=== PATIENT | female | born 1995 | race Caucasian/White ===

== ENCOUNTER 2017-05-31 20:47 | Emergency (ER) | payer BC ==
[2017-05-31 21:17] VITALS: BP 129/98
--- NOTE | 2017-05-31 21:50 | ER Document Report ---
HPI - HPI Patient complains to provider of: Sinus pressure, productive cough Pain Level: 1 Context: Patient is a 21-year-old female who comes emergency department for chief complaint of 5 days of progressively worsening symptoms including cough, nasal drainage, sore throat, and worsening sinus pressure and congestion. She denies fever. She denies difficulty breathing, vomiting, headache, neck stiffness. She does not smoke. She denies any daily medications. LMP within the past month. - REPRODUCTIVE LMP: 05/30/17 - DERM Skin Color: Normal Past Medical History - General Information source: Patient - Social History Smoking Status: Never Smoker Frequency of alcohol use: None Drug Abuse: None Lives with: Family Family History: Reviewed & Not Pertinent Patient has suicidal ideation: No Patient has homicidal ideation: No - Medical History Medical History: Negative Renal/ Medical History: Denies: Hx Peritoneal Dialysis Surgical Hx: Negative - Immunizations Immunizations up to date: Yes Hx Diphtheria, Pertussis, Tetanus Vaccination: Yes Vertical Provider Document - CONSTITUTIONAL General Appearance: WD/WN, No Apparent Distress - INFECTION CONTROL TRAVEL OUTSIDE OF THE [place] IN LAST 30 DAYS: No - HEENT HEENT: Atraumatic, Normocephalic. negative: Normal ENT Exam - Patient with marked tenderness over the maxillary sinuses, nasal congestion, mildly erythematous pharynx, borderline ear exam with small amount of fluid behind tympanic membranes, otherwise unremarkable ENT exam - NECK Neck: Normal Inspection - RESPIRATORY Respiratory: Breath Sounds Normal, No Respiratory Distress. negative: Wheezing - Clear lungs bilaterally O2 Sat by Pulse Oximetry: 97 - CARDIOVASCULAR Cardiovascular: Regular Rate, Regular Rhythm - GI/ABDOMEN Gastrointestinal: Abdomen Soft, Abdomen Non-Tender - BACK Back: Normal Inspection - DERM Integumentary: Warm, Dry, No Rash Course - Re-evaluation Re-evalutation: Patient reports she initially had fever a few days ago but this resolved, however now she has worsened and her sinuses have become painful. On examination she has noted maxillary sinusitis, patient has productive cough although her lungs are clear on examination. No hypoxia, no respiratory distress, no concerning lung abnormality on examination. Discussed with patient. Patient will be treated with antibiotics, symptom management, provided with work release, discussed follow-up recommendations and return precautions, patient states understanding and agreement. - Vital Signs Vital signs: Temp Pulse Resp BP Pulse Ox 98.5 F 111 H 16 129/98 H 97 05/31/17 21:15 10/20/17 21:15 05/31/17 21:15 05/31/17 21:15 05/31/17 21:15 Discharge - Discharge Clinical Impression: Productive cough Sinusitis Qualifiers: Sinusitis location: maxillary Chronicity: acute Recurrence: non-recurrent Qualified Code(s): J01.00 - Acute maxillary sinusitis, unspecified Upper respiratory infection Qualifiers: URI type: unspecified URI Qualified Code(s): J06.9 - Acute upper respiratory infection, unspecified Condition: Stable Disposition: HOME, SELF-CARE Additional Instructions: Your examination is consistent with an upper respiratory viral infection leading into a sinus infection and secondary drainage and cough. Recommendation is to take the antibiotic as prescribed, continue NyQuil at night , take the Tessalon if needed for cough, take Tylenol or ibuprofen for body ache /discomfort, use the Flonase nasal spray as prescribed. Drink plenty of fluids and rest. Follow-up with primary care. Return to emergency department for any concerning or worsening symptoms including difficulty breathing or any other concerning symptoms. Prescriptions: Benzonatate [Tessalon Perles 100 mg Capsule] 100 mg PO Q8HP PRN #20 capsule PRN Reason: Doxycycline Hyclate 100 mg PO BID #14 capsule Fluticasone Propionate [Flonase Nasal Roosevelt 50 Mcg/Roosevelt 16 gm] 2 sprays NASL Q12 #1 inhaler Forms: Return to Work
== END 2017-05-31 22:12 | disposition home or self-care (01) ==
LOC: ER 20:47
DX: R05 Cough (principal); J01.00 Acute maxillary sinusitis, unspecified; J02.9 Acute pharyngitis, unspecified
CPT/HCPCS: 99283